=== PATIENT | male | born 1980 | race Caucasian/White ===

== ENCOUNTER 2020-06-27 13:02 | Emergency (ER) | payer MEDICARE ==
[~2020-06-27] VITALS: Ht 172.7 cm; Wt 108.0 kg
[~2020-06-27 13:02] MED LIST: CEPH-376 PO
[2020-06-27 13:56] LABS: BASOPHILS % (AUTO) 1 % (0-1); EOSINOPHILS % (AUTO) 2 % (1-7); LYMPHOCYTES % (AUTO) 19 % (22-44); MEAN CORPUSCULAR HGB CONC 34.4 g/dL (33.2-36.2); MEAN PLATELET VOLUME 8.4 fL (7.4-10.4); MONOCYTES % (AUTO) 6 % (2-9); NEUTROPHILS % (AUTO) 72 % (42-75); PLATELET COUNT 247 x10^3/uL (130-400); RED BLOOD COUNT 6.07 x10^6/uL (4.38-5.82); RED CELL DISTRIBUTION WIDTH 12.4 % (9.4-14.8)
[2020-06-27 13:58] LABS: MD NO
--- NOTE | 2020-06-27 14:00 | NUR ---
PT IN CT
[2020-06-27 14:01] LABS: MICROSCOPIC AUTO
[2020-06-27 14:09] LABS: ALBUMIN 3.8 g/dL (3.4-5.0); ANION GAP 7 mmol/L (5-15); CALCIUM 9.6 mg/dL (8.5-10.1); CHLORIDE 100 mmol/L (98-107); CREATININE 1.32 mg/dL (0.7-1.3)
--- NOTE | 2020-06-27 14:56 | NUR ---
SEA RN: IV PLACED FOR PRIMARY RN.
--- NOTE | 2020-06-27 15:49 | NUR ---
ALL TESTS RESULTED. PT IS UP FOR RECHECK AT THIS TIME.
[2020-06-27] MEDS ORDERED: CEFTRIAXONE PMX 1GM/50ML 50 ML ONE (16:22)
[2020-06-27] MEDS ORDERED: INSULIN SINGLE DOSE, ER ONE (16:23)
[2020-06-27] MEDS ORDERED: INSULIN REGULAR 100 UNITS/ML, 3ML VIAL SQ-INSULIN ONE (16:30)
[2020-06-27] MEDS ORDERED: SODIUM CHLORIDE 0.9% 1,000ML IVBOLUS ONE (16:30)
[2020-06-27] MEDS ORDERED: CEFTRIAXONE PMX 1GM/50ML 50 ML IVPB ONE (16:30)
[2020-06-27 16:34] VITALS: BP 148/94
--- NOTE | 2020-06-27 17:20 | NUR ---
FSBS 351, PT REQUESTING TO LEAVE BY 1800 WILL UPDATE ERP.
== END 2020-06-27 17:42 | disposition home or self-care (01) ==
LOC: ED 13:57
DX: N30.01 Acute cystitis with hematuria (principal); E11.65 Type 2 diabetes mellitus with hyperglycemia; I10 Essential (primary) hypertension; R00.0 Tachycardia, unspecified
CPT/HCPCS: 36415; 74176; 80048; 81001; 82040; 82962; 85025; 87077; 87086; 96365; 99284; J0696; J1815; J7030

== ENCOUNTER → 2020-12-17 | Outpatient (CLI) | payer MEDICARE ==
[~2020-12-17] MED LIST changes: +GADOTERATE 10 MMOL/20ML SYR ONE
== END | disposition home or self-care (01) ==
LOC: RAD 14:39
PROVIDERS: ATTEND Nurse Practitioner Primary Care
DX: G44.52 New daily persistent headache (NDPH) (principal)
CPT/HCPCS: 70553; A9575

== ENCOUNTER 2020-12-19 08:47 | Emergency (ER) | payer MEDICARE ==
[~2020-12-19] VITALS: Ht 172.7 cm; Wt 105.0 kg
[~2020-12-19 08:47] MED LIST changes: -GADOTERATE 10 MMOL/20ML SYR ONE
--- NOTE | 2020-12-19 09:27 | NUR ---
PT FROM LOBBY TO ROOM. PT AMBULATING STEADILY
--- NOTE | 2020-12-19 09:46 | NUR ---
PT AMBULATORY TO ROOM 25 W/ C/O HEADACHE. PT STATES HE HAS AN INFECTED TOOTH. PT STATES HE GETS POPPING IN EYES AND L EAR. PT C/O PAIN ABOVE R EAR. PT HAD MRI DONE 12/17/2020 WAS NEGATIVE. PT STATES HE ONLY TOOK ASA FOR PAIN YESTERDAY. HAS NOT ATTEMPTED ANY OTHER HOME REMEDIES TO RELIEVE MARTINEZ. PT RESTING ON GURNEY. NADN. MONITORS APPLIED. VSS. WARM BLANKET PROVIDED. CALL LIGHT IN REACH.
[2020-12-19 10:55] LABS: ALANINE AMINOTRANSFERASE 37 U/L (12-78); ALBUMIN 3.7 g/dL (3.4-5.0); ANION GAP 8 mmol/L (5-15); CHLORIDE 106 mmol/L (98-107); CHOLESTEROL, TOTAL 136 mg/dL (140-239); CREATININE 0.79 mg/dL (0.7-1.3); TRIGLYCERIDES 144 mg/dL (50-200); VLDL CHOLESTEROL 29 mg/dL (0-25)
--- NOTE | 2020-12-19 11:05 | NUR ---
PT RESTING ON GURNEY. NADN. DEAN.
[2020-12-19 11:06] LABS: BASOPHILS % (AUTO) 1 % (0-1); EOSINOPHILS % (AUTO) 1 % (1-7); LYMPHOCYTES % (AUTO) 26 % (22-44); MEAN CORPUSCULAR HEMOGLOBIN 31.5 pg (27.5-34.5); MEAN PLATELET VOLUME 8.1 fL (7.4-10.4); MONOCYTES % (AUTO) 7 % (2-9); NEUTROPHILS % (AUTO) 65 % (42-75); PLATELET COUNT 254 x10^3/uL (130-400); RED BLOOD COUNT 5.39 x10^6/uL (4.38-5.82); RED CELL DISTRIBUTION WIDTH 11.9 % (9.4-14.8)
[2020-12-19 11:21] LABS: ALKALINE PHOSPHATASE 100 U/L (45-117); BILIRUBIN,TOTAL 0.5 mg/dL (0.2-1.0); CHOL/HDL RATIO 2.5; HDL CHOL % 40 % (26-37); HDL CHOLESTEROL (DIRECT) 54 mg/dL (40-60); LDL CHOLESTEROL,CALCULATED 53 mg/dL (54-169); TOTAL PROTEIN 7.1 g/dL (6.4-8.2)
--- NOTE | 2020-12-19 11:31 | NUR ---
PT CHART REVIEWED AND PLACED FOR RECHECK.
[2020-12-19 11:48] VITALS: BP 124/83
== END 2020-12-19 11:50 | disposition home or self-care (01) ==
LOC: ED 11:40
DX: R51.9 Headache, unspecified (principal); E11.65 Type 2 diabetes mellitus with hyperglycemia; I10 Essential (primary) hypertension
CPT/HCPCS: 36415; 80053; 80061; 82306; 82607; 84443; 85025; 99283